=== PATIENT | male | born 1990 | race African-American/Black ===

== ENCOUNTER 2024-08-07 05:28 | Emergency (ER) | payer SELFPAY | END 2024-08-07 05:45 | disposition home or self-care (01) | LOC: CSHERS 05:28 | DX: S27.819A Unspecified injury of esophagus (thoracic part), initial encounter (principal); B20 Human immunodeficiency virus [HIV] disease; W25.XXXA Contact with sharp glass, initial encounter; Y93.G3 Activity, cooking and baking | CPT/HCPCS: 99283 ==